=== PATIENT | male | born 1990 | race American Indian/Alaskan Native ===

== ENCOUNTER 2016-12-21 13:30 | Emergency (ER) | payer SELFPAY ==
[~2016-12-21] VITALS: Ht 172.7 cm; Wt 86.2 kg
[~2016-12-21 13:30] MED LIST: HYDROCODON-ACE1 EAC8 PO; IBUPROFEN800 MG PO
[2016-12-21] MEDS ORDERED: BENTYL10 MG PO (14:57)
[2016-12-21] MEDS ORDERED: ONDANSETRON ODT8 MG PO (14:57)
== END 2016-12-21 15:10 | disposition home or self-care (01) ==
LOC: ED 13:30
DX: R10.9 Unspecified abdominal pain (principal)
CPT/HCPCS: 80053; 81001; 82150; 83690; 85025; 96361; 96374; 99283; J2405; J7030

== ENCOUNTER 2019-09-27 13:42 | Emergency (ER) | payer BC, OTHER ==
[~2019-09-27] VITALS: Ht 172.7 cm; Wt 90.7 kg
[~2019-09-27 13:42] MED LIST changes: +BENTYL10 MG PO; +CEPHALEXIN500 MG PO; +MAPAP500 MG PO; +ONDANSETRON ODT8 MG PO; +TRAMADOL HCL50 MG PO
[2019-09-27] MEDS ORDERED: NORCO 5-325 TA1 EACH PO (14:20)
[2019-09-27] MEDS ORDERED: METRONIDAZOLE500 MG PO (14:20)
[2019-09-27] MEDS ORDERED: PENICILLIN V P500 MG PO (14:20)
[2019-09-27] MEDS ORDERED: PREDNISONE20 MG PO (14:20)
== END 2019-09-27 15:08 | disposition home or self-care (01) ==
LOC: ED 13:42
DX: K04.7 Periapical abscess without sinus (principal)
CPT/HCPCS: 99283

== ENCOUNTER 2021-12-17 15:57 | Emergency (ER) | payer OTHER ==
[~2021-12-17] VITALS: Ht 172.7 cm; Wt 92.0 kg
[~2021-12-17 15:57] MED LIST changes: +METRONIDAZOLE500 MG PO; +NORCO 5-325 TA1 EACH PO; +PENICILLIN V P500 MG PO; +PREDNISONE20 MG PO
== END 2021-12-17 17:08 | disposition home or self-care (01) ==
LOC: ED 15:57
DX: F11.129 Opioid abuse with intoxication, unspecified (principal)
CPT/HCPCS: 99284